=== PATIENT | female | born 1970 | race Caucasian/White ===

== ENCOUNTER 2018-05-19 03:00 | Emergency (ER) | payer OTHER ==
[2018-05-19 03:25] VITALS: BP 147/79; PULSE 59; TEMP 98.4; BMI 26.9
[2018-05-19] MEDS ORDERED: KETOROLAC TROMETHAMINE 30 MG/1 ML VIAL IM ONE (06:21)
[2018-05-19] MEDS ORDERED: diazePAM 5 MG TABLET PO ONE (06:21)
--- NOTE | 2018-05-19 06:30 | PDOC ---
History of Present Illness - General Chief Complaint: Pain Stated Complaint: PAIN,RT LEG Time Seen by Provider: 05/19/18 06:11 History Source: Patient - History of Present Illness Initial Comments: 05/19/18 06:30 48 year old female with history of back pain reports that 1 week prior patient was moving boxes at work about 5 days ago with pain to the right buttocks radiating down the leg. no saddle anesthesia / vertebral tenderness 05/19/18 06:39 Past History - Past Medical History Allergies/Adverse Reactions: Allergies Allergy/AdvReac Type Severity Reaction Status Date / Time No Known Allergies Allergy Verified 05/19/18 03:25 Home Medications: Ambulatory Orders No Home Medications 0 dose .ROUTE UTDICT 05/15/13 Carbamide Peroxide [Debrox] 15 ml OS BID #1 bottle 12/14/13 Ibuprofen 600 mg PO QID PRN #30 tablet 05/19/18 Methocarbamol [Robaxin -] 500 mg PO BID PRN #14 tablet 05/19/18 - Surgical History Abdominal Surgery: Yes (dermoid cyst removed 12 yras ago) - Family Disease History Family Disease History: Diabetes: Mother (HTN), Other: Mother - Immunization History Td Vaccination: Yes Immunization Up to Date: Yes - Suicide/Smoking/Psychosocial Hx Smoking Status: No Smoking History: Never smoked Have you smoked in the past 12 months: No Number of Cigarettes Smoked Daily: 0 Information on smoking cessation initiated: No Hx Alcohol Use: No Drug/Substance Use Hx: No Trauma Specific PMHX - Complaint Specific PMHX Arthritis: No Review of Systems - Review of Systems Able to Perform ROS?: Yes Is the patient limited Bulgarian proficient: No Neurological: Yes: Other (right leg pain ) *Physical Exam - Vital Signs Last Vital Signs Temp Pulse Resp BP Pulse Ox 98.4 F 59 L 18 147/79 99 05/19/18 03:00 05/19/18 03:00 05/19/18 03:00 05/19/18 03:00 05/19/18 03:00 - Physical Exam General Appearance: Yes: Appropriately Dressed Respiratory/Chest: positive: Lungs Clear, Normal Breath Sounds Musculoskeletal: negative: Vertebral Tenderness Extremity: positive: Normal Capillary Refill, Normal Inspection, Normal Range of Motion. negative: Pedal Edema Integumentary: positive: Normal Color, Dry, Warm Neurologic: positive: Fully Oriented, Alert, Normal Mood/Affect *DC/Admit/Observation/Transfer Diagnosis at time of Disposition: Sciatica of right side - Discharge Dispostion Disposition: HOME Condition at time of disposition: Fair - Prescriptions Prescriptions: Ibuprofen 600 mg PO QID PRN #30 tablet PRN Reason: Back Pain Methocarbamol [Robaxin -] 500 mg PO BID PRN #14 tablet PRN Reason: Muscle Spasms - Referrals Referrals: Venice Mao [Primary Care Provider] - Eric Wong MD [Staff Physician] - Call tomorrow - Patient Instructions Printed Discharge Instructions: Sciatica Additional Instructions: please follow up in PT or rothopedic take ibuprofen every 6 hours as needed for pain take robaxin as prescribed. do not drive after taking robaxin ' - Post Discharge Activity Forms/Work/School Notes: Back to Work, Parent(s) Back to Work Note
[2018-05-19] MEDS ORDERED: KETOROLAC TROMETHAMINE 30 MG/1 ML VIAL ONE (06:43)
[2018-05-19] MEDS ORDERED: diazePAM 5 MG TABLET ONE (06:44)
== END 2018-05-19 06:57 | disposition home or self-care (01) ==
LOC: JER 03:00
PROC: 3E0233Z Introduction of Anti-inflammatory into Muscle, Percutaneous Approach (ICD-10-PCS; principal; 2018-05-19)
DX: M54.41 Lumbago with sciatica, right side (principal); X50.3XXA Overexertion from repetitive movements, initial encounter; Y93.89 Activity, other specified; Y92.238 Other place in hospital as the place of occurrence of the external cause; Y99.0 Civilian activity done for income or pay
CPT/HCPCS: 99281-25

== ENCOUNTER 2019-09-20 17:42 | Emergency (ER) | payer OTHER ==
--- NOTE | 2019-09-20 18:10 | PDOC ---
Rapid Medical Evaluation Chief Complaint: Abnormal Lab Results (Outside) Time Seen by Provider: 09/20/19 18:05 Medical Evaluation: Allergies Allergy/AdvReac Type Severity Reaction Status Date / Time No Known Allergies Allergy Verified 05/19/18 03:25 09/20/19 18:05 Pt presents for low potassium. She has been taking potassium as an out patient. Labs drawn on 09/20/2019 show a potassium of 2.8. She was seen in the doctors office today and given 40meq of K in the office. Exam: NAD, ambulatory Orders: basic labs Pt to proceed to the ER for further evaluation Discharge Disposition - Diagnosis Abnormal laboratory test - Referrals - Patient Instructions - Post Discharge Activity
[2019-09-20 18:25] VITALS: BP 149/80; PULSE 72; TEMP 98.2; BMI 27.1
[2019-09-20 19:06] LABS: BASO % 0.4 % (0-2.0); HEMATOCRIT 33.7 % (32.4-45.2); MCH 22.2 pg (25.7-33.7); MCHC 32.5 g/dl (32.0-36.0); MEAN CELL VOLUME 68.2 fl (80-96); MEAN PLT VOLUME 9.1 fl (7.5-11.1); MONO % 8.2 % (3.8-10.2); NEUT % 65.4 % (42.8-82.8); PLATELET COUNT 296 K/MM3 (134-434); RBC 4.94 M/mm3 (3.60-5.2); RDW 16.8 % (11.6-15.6); WHITE BLOOD COUNT 8.5 K/mm3 (4.0-10.0)
--- NOTE | 2019-09-20 19:45 | PDOC ---
*Physical Exam - Vital Signs Last Vital Signs Temp Pulse Resp BP Pulse Ox 98.2 F 72 16 149/80 99 09/20/19 18:09 09/20/19 18:09 09/20/19 18:09 09/20/19 18:09 09/20/19 18:09 ED Treatment Course - LABORATORY CBC & Chemistry Diagram: 09/20/19 18:23 09/20/19 18:25 - ADDITIONAL ORDERS Additional order review: 09/20/19 18:23 RBC 4.94 MCV 68.2 L MCHC 32.5 RDW 16.8 H MPV 9.1 Neutrophils % 65.4 Lymphocytes % 25.0 Monocytes % 8.2 Eosinophils % 1.0 Basophils % 0.4 Medical Decision Making - Medical Decision Making 09/20/19 19:45 Patient seen by the advanced practice provider under my direct supervision. Ancillary testing reviewed as necessary. I agree with plan as outlined by the advanced practice provider. Discharge - Discharge Information Problems reviewed: Yes Clinical Impression/Diagnosis: Hypokalemia Condition: Stable Disposition: HOME - Follow up/Referral Referrals: Venice Mao [Primary Care Provider] - - Patient Discharge Instructions Additional Instructions: Your potassium here today was 3.2. It is important that you take your potassium every day as prescribed. Do not miss doses. Without fail, make an appointment with your primary doctor for reevaluation and repeat blood testing within the next 3 days. Your primary doctor will advise you on potential changes in potassium if they feel it is appropriate. Keep your appointment with your cad detailer next . Return to the emergency department for chest pain, palpitations, dizziness, lightheadedness, vomiting, diarrhea or for any other concerns. It was a pleasure taking care of you today and thank you very much for choosing us to provide your emergent healthcare needs. - Post Discharge Activity
--- NOTE | 2019-09-20 19:47 | PDOC ---
History of Present Illness - General Chief Complaint: Abnormal Lab Results (Outside) Stated Complaint: ABNORMAL LABS Time Seen by Provider: 09/20/19 18:05 History Source: Patient Exam Limitations: No Limitations - History of Present Illness Initial Comments: 09/20/19 19:43 HISTORY OF PRESENT ILLNESS: 49-year-old woman past medical history of breast cancer, IBS, hypertension who presents to the emergency department for evaluation of hypokalemia which was discovered today at her oncologist office during a routine visit. Patient's potassium noted to be 2.8. Patient reports multiple episodes of hypokalemia over the past 6 months from unknown etiology. Patient was taking 20 mEq of potassium twice a day and was instructed to decrease to daily dosing when potassium had normalized. Patient reports had one episode of loose stools 3 days ago but has had normal bowel movement since that time. Additionally patient reports multiple life stressors and has been intermittently taking her potassium supplements over the past 7 days. Patient has an appointment with a volumetric weigher at [facility] in 8 days for reevaluation of her hypokalemia. Patient denies any diuretic medication, excessive nausea, vomiting or diarrhea, excessive urination. Patient denies all complaints at this time. No recent travel or sick contacts. PAST MEDICAL HISTORY: See HPI SURGICAL HISTORY: Denies ALLERGIES: No known drug allergies REVIEW OF SYSTEMS General/Constitutional: See HPI HEENT: Denies change in vision. Denies ear pain or discharge. Denies sore throat. Cardiovascular: Denies chest pain or shortness of breath. Respiratory: Denies cough, wheezing, or hemoptysis. Gastrointestinal: Denies nausea, vomiting, diarrhea or constipation. Denies rectal bleeding. Genitourinary: Denies dysuria, frequency, or change in urination. Musculoskeletal: Denies joint or muscle swelling or pain. Denies neck or back pain. Skin and breasts: Denies rash or easy bruising. Neurologic: Denies headache, vertigo, loss of consciousness, or loss of sensation. Psychiatric: Denies depression or anxiety. Endocrine: Denies increased thirst. Denies abnormal weight change. Hematologic/Lymphatic: Denies anemia, easy bleeding, or history of blood clots. Allergic/Immunologic: Denies hives or skin allergy. Denies latex allergy. PHYSICAL EXAM General Appearance: Well-appearing, appropriately dressed. No apparent distress , no intoxication. Respiratory/Chest: Lungs CTAB. No shortness of breath, chest tenderness, respiratory distress, accessory muscle use. No crackles, rales, rhonchi, stridor , wheezing, dullness Cardiovascular: RRR. S1, S2. No JVD, murmur, bradycardia, tachycardia. Vascular Pulses: Dorsalis-Pedis (R): 2+, Dorsalis-Pedis (L): 2+ Gastrointestinal/Abdominal: Normal bowel sounds. Abdomen soft, non-distended. No tenderness or rebound tenderness. No organomegaly, pulsatile mass, guarding, hernia, hepatomegaly, splenomegaly. Lymphatic: No adenopathy, tenderness. Integumentary: Appropriate color, dry, warm. No cyanosis, erythema, jaundice or rash Past History - Past Medical History Allergies/Adverse Reactions: Allergies Allergy/AdvReac Type Severity Reaction Status Date / Time No Known Allergies Allergy Verified 09/20/19 18:08 Home Medications: Ambulatory Orders No Home Medications 0 dose .ROUTE UTDICT 05/15/13 Carbamide Peroxide [Debrox] 15 ml OS BID #1 bottle 12/14/13 Ibuprofen 600 mg PO QID PRN #30 tablet 05/19/18 Methocarbamol [Robaxin -] 500 mg PO BID PRN #14 tablet 05/19/18 COPD: No - Surgical History Abdominal Surgery: Yes (dermoid cyst removed 12 yras ago) - Immunization History Td Vaccination: Yes Immunization Up to Date: Yes - Psycho Social/Smoking Cessation Hx Smoking Status: No Smoking History: Never smoked Have you smoked in the past 12 months: No Number of Cigarettes Smoked Daily: 0 Hx Alcohol Use: No Drug/Substance Use Hx: No *Physical Exam - Vital Signs Last Vital Signs Temp Pulse Resp BP Pulse Ox 98.2 F 72 16 149/80 99 09/20/19 18:09 09/20/19 18:09 09/20/19 18:09 09/20/19 18:09 09/20/19 18:09 ED Treatment Course - LABORATORY CBC & Chemistry Diagram: 09/20/19 18:23 09/20/19 18:25 - ADDITIONAL ORDERS Additional order review: 09/20/19 18:23 RBC 4.94 MCV 68.2 L MCHC 32.5 RDW 16.8 H MPV 9.1 Neutrophils % 65.4 Lymphocytes % 25.0 Monocytes % 8.2 Eosinophils % 1.0 Basophils % 0.4 Medical Decision Making - Medical Decision Making 09/20/19 19:47 A/P: 49-year-old woman with hypokalemia at her oncologist office today Physical exam is unremarkable Patient took 40 mEq of potassium at her oncologist office prior to coming to the ER. EKG performed at triage shows sinus rhythm rate of 66. Normal intervals present. No ischemic changes noted. Labs per [facility] Reassess 09/20/19 20:07 Repeat potassium is 3.2. We will give the patient 1 dose of potassium chloride here at 40 mill equivalents and discharge home. Patient has been instructed to take her potassium as previously prescribed and not to miss any doses. Patient has been instructed to follow-up with her primary doctor for repeat potassium level within the next 3 days. Discharge home I discussed the physical exam findings, ancillary test results and final diagnoses with the patient. I answered all of the patient's questions. The patient was satisfied with the care received and felt comfortable with the discharge plan and treatment plan. The patient will call their primary care physician within 24 hours to arrange follow-up and will return to the Emergency Department with any new, persistent or worsening symptoms. Discharge - Discharge Information Problems reviewed: Yes Clinical Impression/Diagnosis: Hypokalemia Condition: Stable - Admission No - Follow up/Referral Referrals: Venice Mao [Primary Care Provider] - - Patient Discharge Instructions Additional Instructions: Your potassium here today was 3.2. It is important that you take your potassium every day as prescribed. Do not miss doses. Without fail, make an appointment with your primary doctor for reevaluation and repeat blood testing within the next 3 days. Your primary doctor will advise you on potential changes in potassium if they feel it is appropriate. Keep your appointment with your volumetric weigher next . Return to the emergency department for chest pain, palpitations, dizziness, lightheadedness, vomiting, diarrhea or for any other concerns. It was a pleasure taking care of you today and thank you very much for choosing us to provide your emergent healthcare needs. - Post Discharge Activity
[2019-09-20 19:54] LABS: ALBUMIN 3.9 g/dl (3.4-5.0); BILIRUBIN,TOTAL 0.4 mg/dL (0.2-1); BLOOD UREA NITROGEN 12.9 mg/dL (7-18); CALCIUM 9.2 mg/dL (8.5-10.1); CREATININE 0.5 mg/dL (0.55-1.3); POTASSIUM 3.2 mmol/L (3.5-5.1); TOT PROT 7.6 g/dl (6.4-8.2)
[2019-09-20] MEDS ORDERED: POTASSIUM CHLORIDE TABS 20 MEQ TABLET.ER (FP) PO ONE ×2 (20:04→20:17)
--- NOTE | 2019-09-21 14:28 | EKG ---
Test Reason : Blood Pressure : / mmHG Vent. Rate : 066 BPM Atrial Rate : 066 BPM P-R Int : 166 ms QRS Dur : 092 ms QT Int : 430 ms P-R-T Axes : 067 032 041 degrees QTc Int : 450 ms NORMAL SINUS RHYTHM WITH SINUS ARRHYTHMIA POSSIBLE LEFT ATRIAL ENLARGEMENT BORDERLINE ECG WHEN COMPARED WITH ECG OF 17-SEP-2011 10:32, NONSPECIFIC T WAVE ABNORMALITY NOW EVIDENT IN ANTERIOR LEADS Confirmed by BRIAN BAGLEY, JOEY ([id number]) on 09/21/2019 2:28:36 PM Referred By: Confirmed By:JOEY TORRES MD
== END 2019-09-20 20:21 | disposition home or self-care (01) ==
LOC: JER 17:42
DX: E87.6 Hypokalemia (principal); I10 Essential (primary) hypertension; Z85.3 Personal history of malignant neoplasm of breast; Z87.19 Personal history of other diseases of the digestive system
CPT/HCPCS: 36415; 80053; 85025; 93005; 93010; 99282-25

== ENCOUNTER 2023-03-17 07:19 | Emergency (ER) | payer BC, OTHER ==
[2023-03-17 07:32] VITALS: TEMP 98.1; BMI 26.6
[2023-03-17] MEDS ORDERED: METOCLOPRAMIDE HCL INJECTION 10 MG/2 ML VIAL IVPUSH ONE (07:58)
[2023-03-17] MEDS ORDERED: KETOROLAC TROMETHAMINE 30 MG/1 ML VIAL IM ONE (07:58)
[2023-03-17] MEDS ORDERED: SODIUM CHLORIDE 1,000 ML IV STA (07:58)
[2023-03-17] MEDS ORDERED: METOCLOPRAMIDE HCL INJECTION 10 MG/2 ML VIAL ONE (08:20)
[2023-03-17] MEDS ORDERED: KETOROLAC TROMETHAMINE 30 MG/1 ML VIAL ONE (08:21)
[2023-03-17 08:39] LABS: BASO % 0.5 % (0-2.0); EOS % 1.7 % (0-4.5); HEMATOCRIT 37.5 % (32.4-45.2); HEMOGLOBIN 12.2 GM/dL (10.7-15.3); LYMPH % 31.6 % (8-40); MCH 24.6 pg (25.7-33.7); MCHC 32.5 g/dl (32.0-36.0); MEAN CELL VOLUME 75.9 fl (80-96); MEAN PLT VOLUME 9.5 fl (7.5-11.1); MONO % 9.3 % (3.8-10.2); NEUT % 56.9 % (42.8-82.8); PLATELET COUNT 236 10^3/uL (134-434); RBC 4.94 M/mm3 (3.60-5.2); RDW 14.1 % (11.6-15.6); WHITE BLOOD COUNT 5.8 K/mm3 (4.0-10.0)
[2023-03-17 08:48] LABS: INR 1.14 (0.83-1.09); PROTHROMBIN TIME (PATIENT) 13.2 SEC (9.7-13.0)
[2023-03-17 08:50] LABS: ACTIVATED PTT 31.9 SECONDS (25.2-36.5)
[2023-03-17 09:10] LABS: POTASSIUM 4.4 mmol/L (3.5-5.1)
[2023-03-17 09:12] LABS: ALBUMIN 3.9 g/dl (3.4-5.0); BLOOD UREA NITROGEN 13.3 mg/dL (7-18); CALCIUM 9.2 mg/dL (8.5-10.1)
[2023-03-17 09:16] LABS: CREATININE 0.7 mg/dL (0.55-1.3)
[2023-03-17 09:17] LABS: BILIRUBIN,TOTAL 0.3 mg/dL (0.2-1); TOT PROT 7.5 g/dl (6.4-8.2)
[2023-03-17 09:55] VITALS: BP 131/70; PULSE 71; RESP 15
== END 2023-03-17 10:03 | disposition home or self-care (01) ==
LOC: JER 07:19
PROC: 3E033GC Introduction of Other Therapeutic Substance into Peripheral Vein, Percutaneous Approach (ICD-10-PCS; principal; 2023-03-17)
PROC: 3E033GC Introduction of Other Therapeutic Substance into Peripheral Vein, Percutaneous Approach (ICD-10-PCS; 2023-03-17)
PROC: 3E0337Z Introduction of Electrolytic and Water Balance Substance into Peripheral Vein, Percutaneous Approach (ICD-10-PCS; 2023-03-17)
PROC: 3E0233Z Introduction of Anti-inflammatory into Muscle, Percutaneous Approach (ICD-10-PCS; 2023-03-17)
DX: R51.9 Headache, unspecified (principal)
CPT/HCPCS: 36415; 70450-TC; 80053; 84703; 85025; 85610; 85730; 99284-25

== ENCOUNTER 2024-02-14 18:05 | Emergency (ER) | payer BC, OTHER ==
[2024-02-14 18:25] VITALS: BP 134/71; PULSE 62; RESP 17; TEMP 98.5; BMI 28.1
== END 2024-02-14 19:04 | disposition home or self-care (01) ==
LOC: JERFT 18:05
DX: R21 Rash and other nonspecific skin eruption (principal)
CPT/HCPCS: 99282-25